=== PATIENT | female | born 2000 | race Caucasian/White ===

== ENCOUNTER 2019-03-12 15:40 | Inpatient (IN) | payer OTHER, SELFPAY ==
[2019-03-12] VITALS (14 sets, daily range): BP systolic 121–144; BP diastolic 74–83; PULSE 105–123; RESP 18–21; TEMP 36.7–37.9; O2SAT 87–93; BMI 35.7
[2019-03-12] MEDS: ALBUTEROL/IPRATROPIUM 3 ML AMPUL INH ×2 (16:01→21:21)
[2019-03-12] MEDS: ALBUTEROL 2.5 MG/3 ML NEB (ADULT) INH (16:07)
[2019-03-12] MEDS: predniSONE 20 MG TABLET 60 MG PO (16:17)
--- NOTE | 2019-03-12 16:25 | DI.RAD.S_ITS ---
PROCEDURE: XR CHEST 2V INDICATIONS: sob, wheezing, cough, hx of asthma and pneumonia TECHNIQUE: 2 views of the chest were acquired. COMPARISON: None. FINDINGS: Surgical changes and devices: None. Lungs and pleura: Lungs are clear. No pleural effusions or pneumothorax. Mediastinum: Mediastinal contours are normal. Heart size is normal. Bones and chest wall: No suspicious bony abnormalities. Soft tissues appear unremarkable. IMPRESSION: Negative chest. No acute cardiopulmonary process is evident. Dictated by: Sp Seay M.D. on 03/12/2019 at 15:39 Approved by: Sp Seay M.D. on 03/12/2019 at 15:46
--- NOTE | 2019-03-12 16:38 | ED.ASTHMA ---
HPI - Asthma <BECKA Wright - Last Filed: 03/12/19 19:04> General Chief Complaint: Asthma Stated Complaint: asthma attack Time Seen by Provider: 03/12/19 15:43 Source: patient Mode of arrival: Wheelchair Limitations: no limitations History of Present Illness HPI Narrative: This is a 18-year-old female, occasional TCH smoker, who presents to ED with family member with worsening short of breath, chest tightness, wheezing, yellow mucus productive cough for last 4 days. Patient reports onset of symptoms 10 days ago. Patient denies fever, chills, nausea or vomiting. She was diagnosed with asthma 1.5 years ago when she had bad bronchitis and pneumonia and was hospitalized for 5 days. She has been using albuterol inhaler every 2 hours or so without much effect. Patient denies history of intubation from asthma exacerbation. Patient reports feels like her symptoms are similar to when she had pneumonia in the past. Patient reports asthma exacerbation is usually by smoking TCH oil which she has not used recently. Last LMP about a week ago, has IUD. No recent long distance travel and denies hx of blood clots. Patient currently visiting family members in [facility] and her PCP is in [facility]. Related Data Home Medications Medication Instructions Recorded Confirmed albuterol sulfate 2 puff INHALATION Q6HR PRN 03/12/19 03/12/19 citalopram 40 mg PO QPM 03/12/19 03/12/19 rizatriptan 10 mg TRANSLINGUAL PRN PRN 03/12/19 03/12/19 Allergies Allergy/AdvReac Type Severity Reaction Status Date / Time No Known Drug Allergies Allergy Verified 03/12/19 15:49 Review of Systems <BECKA Wright - Last Filed: 03/12/19 19:04> Review of Systems Narrative: General: Denies fever, chills, fatigue, malaise, sweats. HEENT: Denies sinus pain, ear pain, sore throat, difficulty swallowing, dizziness. Respiratory: See HPI Cardiovascular: Denies chest pain, palpitations, orthopnea, edema. Gastrointestinal: Denies nausea, vomiting, abdominal pain, diarrhea, constipation, melena. : Denies dysuria, frequency, incontinence, hematuria, urinary retention. Musculoskeletal: Denies weakness, joint pain or bony pain. Skin: Denies rash, skin lesions, or other. Neurologic: Denies weakness, headache, numbness, change in speech, confusion, seizures, incoordination. Psychiatric: No concerning psychosocial issues. 12-point review of systems is negative except for those stated above. Patient History <BECKA Wright - Last Filed: 03/12/19 19:04> Medical History (Updated 03/12/19 @ 20:55 by BECKA Gonzalez) Asthma (Acute) Bronchitis (Acute) Pneumonia (Acute) Surgical History (Updated 03/12/19 @ 21:31 by BECKA Gonzalez) Hx of (Acute) Family History (Updated 03/12/19 @ 20:56 by BECKA Gonzalez) Mother Asthma Father Pollen allergies Social History household members: family Smoking Status: Never smoker Smoking Status: Never smoker Substance Use Type: marijuana Exam <BECKA Wright - Last Filed: 03/12/19 19:04> Narrative Exam Narrative: GEN: Alert, oriented x 3, well appearing and nourished, and in no acute distress. Head: Normal cephalic, atraumatic. No scalp or temporal tenderness, palpable mass or rash. EYES: Pupils are equal, round, and reactive to light and accommodation. Extraocular muscles are intact bilaterally. There is no subconjunctival hemorrhage, exudate and sclera non-icteric. ENT: Bilateral auditory canals and tympanic membranes clear. Hearing grossly intact. Nose without bleeding, purulent discharge or deviation. Facial sinuses nontender to palpate. Mucous membrane moist, no mucosal lesion. Throat without erythema, tonsillar hypertrophy or exudate. Uvula in midline, airway patent. Neck: Trachea in midline. No JVD, non-tender without lymphadenopathy. No masses or thyroid megaly. Supple, non-tender and no meningeal signs. CARDIAC: Normal regular rate and rhythm without murmurs, gallops, or rubs. No chest wall tenderness. No peripheral edema, cyanosis or pallor. Capillary refill is less than 2 seconds. RESPIRATORY: Lungs are wheezing to auscultate throughout with decreased breath sounds in bilateral lower lobes. clear to auscultate bilaterally. Frequent coughing. No rales, or rhonchi. No stridor. Mild respiratory distress with difficulty completing a long full sentence w/o stopping. No increase work of breathing, or accessary muscle used. O2 sat in RA from 90-94%. ABD: Abdomen soft, nontender and non-distended. No guarding or rebound tenderness to palpate. Bowel sounds are normal in all 4 quadrants. There is no palpable masses or organomegaly. EXT: Full painless ROM of all extremities with no loss of sensation, strength, effusion or edema. SKIN: Warm, dry, normal color for patient. No erythema, lesions or rash over visible areas. BACK: Nontender without deformity or crepitance. No flank tenderness. NEUROLOGICAL: Alert and oriented to place, time and person. Sensation and motor function intact bilaterally. No facial droops, dysphasia. PSYCHIATRIC: Good judgement and reason, without hallucinations, abnormal affect or abnormal behaviors during the examination. Patient is not suicidal. Initial Vital Signs Initial Vital Signs: Vital Signs Temperature 99.9 F H 03/12/19 15:53 Pulse Rate 111 H 03/12/19 15:53 Blood Pressure 141/74 H 03/12/19 15:53 <Lynne Knight DO - Last Filed: 03/13/19 08:12> Initial Vital Signs Initial Vital Signs: Vital Signs Temperature 99.9 F H 03/12/19 15:53 Pulse Rate 111 H 03/12/19 15:53 Blood Pressure 141/74 H 03/12/19 15:53 Course <BECKA Wright - Last Filed: 03/12/19 19:04> Orders Ordered: Acetaminophen (Tylenol) 650 mg PO Q6HR PRN PRN Reason: Fever/Mild Pain (1-3) Last Admin: 03/12/19 21:08 Dose: 650 mg Documented by: JOAQUÍNEAPeggy Albuterol (Ventolin) 2.5 mg INH [id number] PRN PRN Reason: Shortness Of Breath Albuterol/Ipratropium (Duoneb) 3 ml INH RTQ4HR PRN PRN Reason: Shortness Of Breath Last Admin: 03/13/19 07:56 Dose: 3 ml Documented by: Admin: 03/13/19 02:39 Dose: 3 ml Documented by: Admin: 03/12/19 21:21 Dose: 3 ml Documented by: STEPHANIE Citalopram Hydrobromide (Celexa) 40 mg PO DAILY HALIE Influenza Virus Vaccine (Flu Vaccine) 0.5 ml IM .ONCE ONE Stop: 03/13/19 09:01 Prednisone (Deltasone) 60 mg PO DAILY HALIE Sumatriptan Succinate (Imitrex) 50 mg PO Q2H PRN PRN Reason: Headache Last Admin: 03/13/19 05:17 Dose: 50 mg Documented by: Admin: 03/12/19 21:07 Dose: 50 mg Documented by: ALBERT Discontinued Medications Albuterol (Ventolin) 2.5 mg INH [id number] PRN PRN Reason: Shortness Of Breath Last Admin: 03/12/19 16:07 Dose: 2.5 mg Documented by: GERI Albuterol (Ventolin) 5 mg INH NOW ONE Stop: 03/12/19 17:04 Last Admin: 03/12/19 17:26 Dose: 5 mg Documented by: GERMÁN Albuterol/Ipratropium (Duoneb) 3 ml INH NOW ONE Stop: 03/12/19 15:57 Last Admin: 03/12/19 16:01 Dose: 3 ml Documented by: GERI Azithromycin (Zithromax) 500 mg PO NOW ONE Stop: 03/12/19 19:52 Last Admin: 03/12/19 20:13 Dose: 500 mg Documented by: ALBERT Sodium Chloride (Normal Saline 0.9%) 1,000 mls @ 1,000 mls/hr IV BOLUS ONE Stop: 03/12/19 18:19 Last Infusion: 03/12/19 18:59 Dose: 0 mls/hr Documented by: Admin: 03/12/19 18:04 Dose: 1,000 mls/hr Documented by: TELLO Magnesium Sulfate (Magnesium Sulfate) 2 gm in 50 mls @ 25 mls/hr IV NOW ONE Stop: 03/12/19 20:32 Last Infusion: 03/12/19 19:24 Dose: 25 mls/hr Documented by: ALBERT Cosigned by: BIANCA Infusion: 03/12/19 18:56 Dose: 0 mls/hr Documented by: TELLO Cosigned by: TAVARES Admin: 03/12/19 18:42 Dose: 25 mls/hr Documented by: TELLO Cosigned by: TAVARES Ondansetron HCl (Zofran) 4 mg IV NOW ONE Stop: 03/12/19 18:23 Last Admin: 03/12/19 18:41 Dose: 4 mg Documented by: TELLO Prednisone (Deltasone) 60 mg PO NOW ONE Stop: 03/12/19 16:00 Last Admin: 03/12/19 16:17 Dose: 60 mg Documented by: TELLO Reevaluation(s) Reevaluation #1: increasing wheezing after 1st neb treatment. additional neb tx ordered. Time: 17:04 Reevaluation #2: continue with exp wheezing, o2 sat 88% in RA Time: 18:24 Reevaluation #3: O2 decreases to 87% and O2 by NC on 2 liter provided Time: 18:40 Consultations Consultation #1: Dr. Doss for admission Time: 18:35 Vital Signs Vital signs: Vital Signs - 8 hr 03/12/19 15:53 03/12/19 16:00 03/12/19 16:03 Temperature 99.9 F H Pulse Rate 111 H 108 H 105 H Respiratory Rate 20 20 Blood Pressure [Left Arm] 141/74 H 143/78 H Pulse Oximetry 90 L 88 L 03/12/19 16:08 03/12/19 17:27 03/12/19 17:32 Temperature Pulse Rate 111 H 122 H 115 H Respiratory Rate 19 18 21 Blood Pressure [Left Arm] 143/82 H Pulse Oximetry 89 L 93 92 <Lynne Knight, - Last Filed: 03/13/19 08:12> Orders Ordered: Acetaminophen (Tylenol) 650 mg PO Q6HR PRN PRN Reason: Fever/Mild Pain (1-3) Last Admin: 03/12/19 21:08 Dose: 650 mg Documented by: JPERANTEAU Albuterol (Ventolin) 2.5 mg INH [id number] PRN PRN Reason: Shortness Of Breath Albuterol/Ipratropium (Duoneb) 3 ml INH RTQ4HR PRN PRN Reason: Shortness Of Breath Last Admin: 03/13/19 07:56 Dose: 3 ml Documented by: Admin: 03/13/19 02:39 Dose: 3 ml Documented by: Admin: 03/12/19 21:21 Dose: 3 ml Documented by: STEPHANIE Citalopram Hydrobromide (Celexa) 40 mg PO DAILY HALIE Influenza Virus Vaccine (Flu Vaccine) 0.5 ml IM .ONCE ONE Stop: 03/13/19 09:01 Prednisone (Deltasone) 60 mg PO DAILY HALIE Sumatriptan Succinate (Imitrex) 50 mg PO Q2H PRN PRN Reason: Headache Last Admin: 03/13/19 05:17 Dose: 50 mg Documented by: Admin: 03/12/19 21:07 Dose: 50 mg Documented by: ALBERT Discontinued Medications Albuterol (Ventolin) 2.5 mg INH [id number] PRN PRN Reason: Shortness Of Breath Last Admin: 03/12/19 16:07 Dose: 2.5 mg Documented by: GERI Albuterol (Ventolin) 5 mg INH NOW ONE Stop: 03/12/19 17:04 Last Admin: 03/12/19 17:26 Dose: 5 mg Documented by: GERMÁN Albuterol/Ipratropium (Duoneb) 3 ml INH NOW ONE Stop: 03/12/19 15:57 Last Admin: 03/12/19 16:01 Dose: 3 ml Documented by: GERI Azithromycin (Zithromax) 500 mg PO NOW ONE Stop: 03/12/19 19:52 Last Admin: 03/12/19 20:13 Dose: 500 mg Documented by: ALBERT Sodium Chloride (Normal Saline 0.9%) 1,000 mls @ 1,000 mls/hr IV BOLUS ONE Stop: 03/12/19 18:19 Last Infusion: 03/12/19 18:59 Dose: 0 mls/hr Documented by: Admin: 03/12/19 18:04 Dose: 1,000 mls/hr Documented by: TELLO Magnesium Sulfate (Magnesium Sulfate) 2 gm in 50 mls @ 25 mls/hr IV NOW ONE Stop: 03/12/19 20:32 Last Infusion: 03/12/19 19:24 Dose: 25 mls/hr Documented by: ALBERT Cosigned by: BIANCA Infusion: 03/12/19 18:56 Dose: 0 mls/hr Documented by: TELLO Cosigned by: CPRUITT Admin: 03/12/19 18:42 Dose: 25 mls/hr Documented by: TELLO Cosigned by: TAVARES Ondansetron HCl (Zofran) 4 mg IV NOW ONE Stop: 03/12/19 18:23 Last Admin: 03/12/19 18:41 Dose: 4 mg Documented by: TELLO Prednisone (Deltasone) 60 mg PO NOW ONE Stop: 03/12/19 16:00 Last Admin: 03/12/19 16:17 Dose: 60 mg Documented by: TELLO Vital Signs Vital signs: Vital Signs - 8 hr 03/12/19 15:53 03/12/19 16:00 03/12/19 16:03 Temperature 99.9 F H Pulse Rate 111 H 108 H 105 H Respiratory Rate 20 20 Blood Pressure [Left Arm] 141/74 H 143/78 H Pulse Oximetry 90 L 88 L 03/12/19 16:08 03/12/19 17:27 03/12/19 17:32 Temperature Pulse Rate 111 H 122 H 115 H Respiratory Rate 19 18 21 Blood Pressure [Left Arm] 143/82 H Pulse Oximetry 89 L 93 92 MDM - Asthma <Korey BECKA Ulloa - Last Filed: 03/12/19 19:04> Differential Diagnosis Differential diagnosis: Likely Acute exacerbation, Status asthmaticus, Acute asthmatic bronchitis, PE and Pneumonia Medical Records Attestation: I reviewed the patient's medical records. Lab Data Attestation: I reviewed the patient's lab results. Result diagrams: 03/13/19 05:10 03/13/19 05:10 Labs: Lab Results 03/12/19 03/12/19 03/12/19 Range/Units 18:05 18:05 18:05 WBC 13.6 H (4.5-11.0) X10^3/uL RBC 4.99 (4.0-5.2) X10^6/uL Hgb 14.6 (12.0-16.0) g/dL Hct 42.7 (36-46) % MCV 85.6 (80-100) fL MCH 29.3 (26-34) PG MCHC 34.3 (30-36) % RDW 13.7 (11.6-14.8) % Plt Count 345 (150-400) X10^3/uL Neut % (Auto) 79.4 H (50-75) % Lymph % (Auto) 12.6 L (25-40) % [place] % (Auto) 4.2 (3-14) % Eos % (Auto) 2.7 (2-4) % Baso % (Auto) 1.1 (0-2) % Neut # (Auto) 67716 H (9575-6726) /uL Lymph # (Auto) 1700 (0506-9541) /uL [place] # (Auto) 600 (0-900) /uL Eos # (Auto) 400 (0-450) /uL Baso # (Auto) 200 H (0-100) /uL Sodium 138 (137-145) mmol/L Potassium 3.5 (3.4-5.1) mmol/L Chloride 105 (98-107) mmol/L Carbon Dioxide 23 (22-32) mmol/L BUN 6 L (7-17) mg/dL Creatinine 0.60 (0.52-1.04) mg/dL Estimated GFR > 60.0 (>60) mL/min BUN/Creatinine Ratio 10.0 (6-22) Glucose 124 H (70-100) mg/dL Calcium 9.6 (8.4-10.2) mg/dL Procalcitonin < 0.05 (<0.5) ng/mL Chlamy pneumoniae PCR (Not Detect) Adenovirus (PCR) (Not Detect) B.parapertussis DNA PCR (Not Detect) Coronavirus OC43 (PCR) (Not Detect) Coronavirus HKU1 (PCR) (Not Detect) Coronavirus 229E (PCR) (Not Detect) Coronavirus NL63 (PCR) (Not Detect) Human Metapneumovir PCR (Not Detect) Influenza Type A (PCR) (Not Detect) Influenza Type B (PCR) (Not Detect) M. pneumoniae (PCR) (Not Detect) Parainfluenza 1 (PCR) (Not Detect) Parainfluenza 2 (PCR) (Not Detect) Parainfluenza 3 (PCR) (Not Detect) Parainfluenza 4 (PCR) (Not Detect) RSV (PCR) (Not Detect) Entero/Rhino (PCR) (Not Detect) 03/12/19 Range/Units 18:31 WBC (4.5-11.0) X10^3/uL RBC (4.0-5.2) X10^6/uL Hgb (12.0-16.0) g/dL Hct (36-46) % MCV (80-100) fL MCH (26-34) PG MCHC (30-36) % RDW (11.6-14.8) % Plt Count (150-400) X10^3/uL Neut % (Auto) (50-75) % Lymph % (Auto) (25-40) % [place] % (Auto) (3-14) % Eos % (Auto) (2-4) % Baso % (Auto) (0-2) % Neut # (Auto) (9927-0846) /uL Lymph # (Auto) (6340-1540) /uL [place] # (Auto) (0-900) /uL Eos # (Auto) (0-450) /uL Baso # (Auto) (0-100) /uL Sodium (137-145) mmol/L Potassium (3.4-5.1) mmol/L Chloride (98-107) mmol/L Carbon Dioxide (22-32) mmol/L BUN (7-17) mg/dL Creatinine (0.52-1.04) mg/dL Estimated GFR (>60) mL/min BUN/Creatinine Ratio (6-22) Glucose (70-100) mg/dL Calcium (8.4-10.2) mg/dL Procalcitonin (<0.5) ng/mL Chlamy pneumoniae PCR Not detected (Not Detect) Adenovirus (PCR) Not detected (Not Detect) B.parapertussis DNA PCR Not detected (Not Detect) Coronavirus OC43 (PCR) Not detected (Not Detect) Coronavirus HKU1 (PCR) Not detected (Not Detect) Coronavirus 229E (PCR) Not detected (Not Detect) Coronavirus NL63 (PCR) Not detected (Not Detect) Human Metapneumovir PCR Not detected (Not Detect) Influenza Type A (PCR) Not detected (Not Detect) Influenza Type B (PCR) Not detected (Not Detect) M. pneumoniae (PCR) Not detected (Not Detect) Parainfluenza 1 (PCR) Not detected (Not Detect) Parainfluenza 2 (PCR) Not detected (Not Detect) Parainfluenza 3 (PCR) Not detected (Not Detect) Parainfluenza 4 (PCR) Not detected (Not Detect) RSV (PCR) Not detected (Not Detect) Entero/Rhino (PCR) Not detected (Not Detect) Imaging Data Chest x-ray: Radiologist's impression: [address] [address] XRay Report Signed Patient: Damaris Hamlin MMR#: [id number] : 2000Acct:[id number] Age/Sex: 18 / FDate of Service: 03/12/19 Loc: ED Accession Number: [id number] Procedure: XR chest 2V Ordering Provider: Korey Ulloa PROCEDURE: XR CHEST 2V INDICATIONS: sob, wheezing, cough, hx of asthma and pneumonia TECHNIQUE: 2 views of the chest were acquired. COMPARISON: None. FINDINGS: Surgical changes and devices: None. Lungs and pleura: Lungs are clear. No pleural effusions or pneumothorax. Mediastinum: Mediastinal contours are normal. Heart size is normal. Bones and chest wall: No suspicious bony abnormalities. Soft tissues appear unremarkable. IMPRESSION: Negative chest. No acute cardiopulmonary process is evident. Dictated by: Sp Seay M.D. on 03/12/2019 at 15:39 Approved by: Sp Seay M.D. on 03/12/2019 at 15:46 MDM Narrative Medical decision making narrative: This is a 18-year-old female who has history of bronchitis, pneumonia, asthma who presents to ED with short of breath, wheezing, chest tightness, dizziness, productive cough for last 4 days. Onset of symptoms about 10 days ago and progressively gotten worse. Patient denies constitutional symptoms. Patient has been using albuterol inhaler frequently like every 1-2 hours but on relieved the symptoms. Patient initially diagnosed with asthma about 1.5 years ago when she was hospitalized with pneumonia for 5 days. Patient initially had very mild wheezing with decreased lung sounds and O2 sat in room air in 90-94%. Patient has frequent nonproductive cough worsens with deep inhalation. Patient has tachycardia rate in 110's bmp. Patient's PCP is at [facility] and patient is visiting family members in town. Patient was treated with DuoNeb and prednisone 60 mg p.o. initially. Noticed increased air movement but worsening wheezing to auscultate. X-ray test was obtained with no acute findings such as pneumonia. Patient given additional 5 mg of albuterol without much improvement. Patient continued to have expiratory wheezing with coughing. Mild increase in white count with neutrophil. Normal electrolytes five mildly increased glucose. Will treat patient as asthma exacerbation with viral bronchitis etiology. O2 sat decreased to 87% in RA with symptoms and given oxygen 2 L of nasal cannula. Dr. Doss was consulted for the admission for asthma exacerbation he kindly accepted patient's care for observation. Additional lab test for respiratory panel was ordered. Patient started on magnesium 2 g infusion for continuing symptoms for with asthma. Differential diagnosis is for she considered the patient doesn't have history of blood clots, is not on estrogen control medications and denies long distance travel and PE test has not obtained at this time. <Lynne Knight, - Last Filed: 03/13/19 08:12> Lab Data Labs: Lab Results 03/12/19 03/12/19 03/12/19 Range/Units 18:05 18:05 18:05 WBC 13.6 H (4.5-11.0) X10^3/uL RBC 4.99 (4.0-5.2) X10^6/uL Hgb 14.6 (12.0-16.0) g/dL Hct 42.7 (36-46) % MCV 85.6 (80-100) fL MCH 29.3 (26-34) PG MCHC 34.3 (30-36) % RDW 13.7 (11.6-14.8) % Plt Count 345 (150-400) X10^3/uL Neut % (Auto) 79.4 H (50-75) % Lymph % (Auto) 12.6 L (25-40) % [place] % (Auto) 4.2 (3-14) % Eos % (Auto) 2.7 (2-4) % Baso % (Auto) 1.1 (0-2) % Neut # (Auto) 16858 H (1539-3241) /uL Lymph # (Auto) 1700 (2328-7380) /uL [place] # (Auto) 600 (0-900) /uL Eos # (Auto) 400 (0-450) /uL Baso # (Auto) 200 H (0-100) /uL Sodium 138 (137-145) mmol/L Potassium 3.5 (3.4-5.1) mmol/L Chloride 105 (98-107) mmol/L Carbon Dioxide 23 (22-32) mmol/L BUN 6 L (7-17) mg/dL Creatinine 0.60 (0.52-1.04) mg/dL Estimated GFR > 60.0 (>60) mL/min BUN/Creatinine Ratio 10.0 (6-22) Glucose 124 H (70-100) mg/dL Calcium 9.6 (8.4-10.2) mg/dL Procalcitonin < 0.05 (<0.5) ng/mL Chlamy pneumoniae PCR (Not Detect) Adenovirus (PCR) (Not Detect) B.parapertussis DNA PCR (Not Detect) Coronavirus OC43 (PCR) (Not Detect) Coronavirus HKU1 (PCR) (Not Detect) Coronavirus 229E (PCR) (Not Detect) Coronavirus NL63 (PCR) (Not Detect) Human Metapneumovir PCR (Not Detect) Influenza Type A (PCR) (Not Detect) Influenza Type B (PCR) (Not Detect) M. pneumoniae (PCR) (Not Detect) Parainfluenza 1 (PCR) (Not Detect) Parainfluenza 2 (PCR) (Not Detect) Parainfluenza 3 (PCR) (Not Detect) Parainfluenza 4 (PCR) (Not Detect) RSV (PCR) (Not Detect) Entero/Rhino (PCR) (Not Detect) 03/12/19 Range/Units 18:31 WBC (4.5-11.0) X10^3/uL RBC (4.0-5.2) X10^6/uL Hgb (12.0-16.0) g/dL Hct (36-46) % MCV (80-100) fL MCH (26-34) PG MCHC (30-36) % RDW (11.6-14.8) % Plt Count (150-400) X10^3/uL Neut % (Auto) (50-75) % Lymph % (Auto) (25-40) % [place] % (Auto) (3-14) % Eos % (Auto) (2-4) % Baso % (Auto) (0-2) % Neut # (Auto) (7261-8272) /uL Lymph # (Auto) (2361-1123) /uL [place] # (Auto) (0-900) /uL Eos # (Auto) (0-450) /uL Baso # (Auto) (0-100) /uL Sodium (137-145) mmol/L Potassium (3.4-5.1) mmol/L Chloride (98-107) mmol/L Carbon Dioxide (22-32) mmol/L BUN (7-17) mg/dL Creatinine (0.52-1.04) mg/dL Estimated GFR (>60) mL/min BUN/Creatinine Ratio (6-22) Glucose (70-100) mg/dL Calcium (8.4-10.2) mg/dL Procalcitonin (<0.5) ng/mL Chlamy pneumoniae PCR Not detected (Not Detect) Adenovirus (PCR) Not detected (Not Detect) B.parapertussis DNA PCR Not detected (Not Detect) Coronavirus OC43 (PCR) Not detected (Not Detect) Coronavirus HKU1 (PCR) Not detected (Not Detect) Coronavirus 229E (PCR) Not detected (Not Detect) Coronavirus NL63 (PCR) Not detected (Not Detect) Human Metapneumovir PCR Not detected (Not Detect) Influenza Type A (PCR) Not detected (Not Detect) Influenza Type B (PCR) Not detected (Not Detect) M. pneumoniae (PCR) Not detected (Not Detect) Parainfluenza 1 (PCR) Not detected (Not Detect) Parainfluenza 2 (PCR) Not detected (Not Detect) Parainfluenza 3 (PCR) Not detected (Not Detect) Parainfluenza 4 (PCR) Not detected (Not Detect) RSV (PCR) Not detected (Not Detect) Entero/Rhino (PCR) Not detected (Not Detect) Discharge Plan Departure Patient Disposition: Admitted as Observation Clinical Impression: Asthma exacerbation Qualifiers: Asthma severity: moderate Asthma persistence: unspecified Qualified Code(s): J45.901 - Unspecified asthma with (acute) exacerbation Discharge Date/Time: 03/12/19 19:12 Admit Date/Time: 03/12/19 18:37 Admit Provider: Eddi Doss
[2019-03-12] MEDS: ALBUTEROL 2.5 MG/3 ML NEB (ADULT) 5 MG INH (17:26)
[2019-03-12] MEDS: SODIUM CHLORIDE 0.9% 1,000 ML 1000 ML IV (18:04)
[2019-03-12 18:10] LABS: Add Manual Diff / Slide Review NO; Basophils Absolute Auto 200 /uL (0-100); Basophils Percent Auto 1.1 % (0-2); Eosinophils Absolute Auto 400 /uL (0-450); Eosinophils Percent Auto 2.7 % (2-4); Hematocrit 42.7 % (36-46); Hemoglobin 14.6 g/dL (12.0-16.0); Lymphocytes Absolute Auto 1700 /uL (1100-4500); Lymphocytes Percent Auto 12.6 % (25-40); Mean Corpuscular HGB Conc 34.3 % (30-36); Mean Corpuscular Hemoglobin 29.3 PG (26-34); Mean Corpuscular Volume 85.6 fL (80-100); Monocytes Absolute Auto 600 /uL (0-900); Monocytes Percent Auto 4.2 % (3-14); Neutrophils Absolute Auto 10800 /uL (1500-7000); Neutrophils Percent Auto 79.4 % (50-75); Platelet Count 345 X10^3/uL (150-400); Red Blood Cell Count 4.99 X10^6/uL (4.0-5.2); Red Cell Distribution Width 13.7 % (11.6-14.8); White Blood Cell Count 13.6 X10^3/uL (4.5-11.0)
[2019-03-12 18:20] LABS: Blood Urea Nitrogen 6 mg/dL (7-17); Calcium 9.6 mg/dL (8.4-10.2); Carbon Dioxide 23 mmol/L (22-32); Chloride 105 mmol/L (98-107); Estimated Glomerular Filt Rate > 60.0 mL/min (>60); Glucose 124 mg/dL (70-100); HEMOLYSIS < 15 (0-50); Potassium 3.5 mmol/L (3.4-5.1); Sodium 138 mmol/L (137-145)
[2019-03-12 18:41] LABS: Procalcitonin < 0.05 ng/mL (<0.5)
[2019-03-12] MEDS: ONDANSETRON 4 MG/2 ML INJ IV (18:41)
[2019-03-12] MEDS: MAGNESIUM SULFATE 2 GM/50 ML PIGGYBACK IV (18:42)
[2019-03-12] MEDS: AZITHROMYCIN 250 MG TABLET 500 MG PO (20:13)
--- NOTE | 2019-03-12 20:54 | P.HP_ITS ---
History of Present Illness History of Present Illness Date Patient Seen: 03/12/19 Time Patient Seen: 19:30 Chief complaint: Asthma exacerbation Narrative: Damaris Hamlin is a pleasant 18 y.o. female who presents with a week and a half history of shortness of breath worsened with exertion which worsened 2 days ago. States she started coughing up white/yellow phlegm, was unable to walk what she regarded to be a normal distance for her without getting very short of breath and wheezing alot. She normally uses an albuterol inhaler, but does not use a maintenance inhaled steroid. She states she became nauseous in the ED, but did not vomit as they had given her an antiemetic. She denies fever, sweats or chills, cough, wheezing at present. Last year, she spent 4 days at a [facility] where she had an asthma exacerbation where she did have nausea and vomiting. She is a student at [employer] in [place] and her regular PCP is in [place]. She lives with a roommate and states she has not had any sick contacts. She is in the middle of final exams. In the ED, she had a low grade fever of 99.9, was given an albuterol nebulizer and a one-time dose of oral prednisone, 60 mgs. Patient History Medical History (Updated 03/12/19 @ 20:55 by BECKA Gonzalez) Asthma (Acute) Bronchitis (Acute) Pneumonia (Acute) Surgical History (Updated 03/12/19 @ 21:31 by BECKA Gonzalez) Hx of (Acute) Family & Social History Family History (Updated 03/12/19 @ 20:56 by BECKA Gonzalez) Mother Asthma Father Pollen allergies Social History: household members family Prior Living Arrangements Apartment/Condo Safety & Behavioral: Feels Safe in Current Yes Environment Been Physically Hurt or No Threatened By a Person Suicidal Ideation Description None Suicide Plan Description No Plan Tobacco & Substance use: Smoking Status Never smoker Substance Use Type marijuana, daily until recently Meds Home Medications and Allergies Home Medications Medication Instructions Recorded Confirmed Type albuterol sulfate 2 puff INHALATION Q6HR PRN 03/12/19 03/12/19 History citalopram 40 mg PO QPM 03/12/19 03/12/19 History rizatriptan 10 mg TRANSLINGUAL PRN PRN 03/12/19 03/12/19 History Allergies Allergy/AdvReac Type Severity Reaction Status Date / Time No Known Drug Allergies Allergy Verified 03/12/19 15:49 Review of Systems Review of Systems Narrative: All systems reviewed and are negative except as noted in the HPI and below. Exam Vital Signs (past 8 hours): - 03/12/19 15:53 03/12/19 16:00 03/12/19 16:03 Temperature 99.9 F H Pulse Rate 111 H 108 H 105 H Respiratory Rate 20 20 Blood Pressure Blood Pressure [Left Arm] 141/74 H 143/78 H Pulse Oximetry 90 L 88 L 03/12/19 16:08 03/12/19 17:27 03/12/19 17:32 Temperature Pulse Rate 111 H 122 H 115 H Respiratory Rate 19 18 21 Blood Pressure Blood Pressure [Left Arm] 143/82 H Pulse Oximetry 89 L 93 92 03/12/19 18:41 03/12/19 19:26 Temperature Pulse Rate 118 H 123 H Respiratory Rate 20 20 Blood Pressure 136/83 Blood Pressure [Left Arm] 144/82 H Pulse Oximetry 92 93 Oxygen Delivery Method Nasal Cannula Oxygen Flow Rate 2 Narrative Exam Narrative: Gen: Alert, oriented, obese 18 y.o. female, mildly anxious HEENT: normocephalic, atraumatic, conjunctiva clear, sclera non-icteric, oral mucosa pink and moist Neck: supple, full ROM Resp: Lungs with coarse breath sounds, non-labored breathing CV: RRR, no murmur or rubs Abd: soft, non-tender, normoactive BTs Skin: no lesions or rashes, dry and intact Neuro: Alert and oriented X 4 w/no focal deficits Extremities: moves all 4 extremities, is ambulatory, negative Mac?s sign Psyche: normal mood and affect. Objective Labs Result Diagrams: 03/12/19 18:05 03/12/19 18:05 Labs: Laboratory Results - last 24 hr 03/12/19 03/12/19 03/12/19 18:05 18:05 18:05 WBC 13.6 H RBC 4.99 Hgb 14.6 Hct 42.7 MCV 85.6 MCH 29.3 MCHC 34.3 RDW 13.7 Plt Count 345 Neut % (Auto) 79.4 H Lymph % (Auto) 12.6 L [place] % (Auto) 4.2 Eos % (Auto) 2.7 Baso % (Auto) 1.1 Neut # (Auto) 87208 H Lymph # (Auto) 1700 [place] # (Auto) 600 Eos # (Auto) 400 Baso # (Auto) 200 H Sodium 138 Potassium 3.5 Chloride 105 Carbon Dioxide 23 BUN 6 L Creatinine 0.60 Estimated GFR > 60.0 BUN/Creatinine Ratio 10.0 Glucose 124 H Calcium 9.6 Procalcitonin < 0.05 Assessment & Plan Assessment & Plan narrative: Damaris Hamlin will be placed in observation for an asthma exacerbation and breen spected viral bronchitis. 1. Asthma exacerbation, present on admission * She will have q 4 hour albuterol and duoneb nebulizers * Continous O2 sat * Respiratory panel sent and pending * She will continue prednisone 60 mg tomorrow * She will need to be prescribed a inhaled corticosteroid for maintenance with closer followup with a local PCP * She is started on oral Azithromycin 500 mg po daily 2. Mild leukocytosis, present on admission * Possibly due to steriod administration, repeat CBC in the am * Pertussis pcr sent and pending * Strep and legionella urine ordered and pending 3. Fever, acute, present on admission * Tylenol 650 mg po q 6 hours prn * Monitor vital q 4 hours * See #2 Patient is placed into observation as her stay is not anticipated to exceed 2 midnights. FEN: IV saline lock, regular diet, chemistries in the am. VTE Prophylaxis: bilateral NAY hose Disposition: likely discharge to home Code status: Full Meds reconciled: Yes, based on current med list Quality VTE Deep Vein Thrombosis/Pulmonary Embolism Present on Admission: No
[2019-03-12] MEDS: SUMAtriptan 25 MG TABLET 50 MG PO (21:07)
[2019-03-12] MEDS: ACETAMINOPHEN 325 MG TABLET 650 MG PO (21:08)
--- NOTE | 2019-03-12 21:30 | PM.HP.1 ---
History of Present Illness History of Present Illness Chief complaint: Asthma exacerbation Narrative: Damaris Hamlin is a pleasant 18 y.o. female who presents with a week and a half history of shortness of breath worsened with exertion which worsened 2 days ago. States she started coughing up white/yellow phlegm, was unable to walk what she regarded to be a normal distance for her without getting very short of breath and wheezing alot. She normally uses an albuterol inhaler, but does not use a maintenance inhaled steroid. She states she bacame nauseous in the ED, but did not vomit as they had given her an antiemetic. She denies fever, sweats or chills, cough, wheezing at present. Last year, she spent 4 days at a [facility] where she had an asthma exacerbation where she did have nausea and vomiting. She is currently a student at [employer] in [place] and does not have a local PCP. In the ED, she had a low grade fever of 99.9, was given an albuterol nebulizer and a one-time dose of oral prednisone, 60 mgs. Patient History Medical History (Updated 03/12/19 @ 20:55 by BECKA Gonzalez) Asthma (Acute) Bronchitis (Acute) Pneumonia (Acute) Surgical History (Updated 03/12/19 @ 21:31 by BECKA Gonzalez) Hx of (Acute) Family & Social History Family History (Updated 03/12/19 @ 20:56 by BECKA Gonzalez) Mother Asthma Father Pollen allergies Social History: household members family Prior Living Arrangements Apartment/Condo Safety & Behavioral: Feels Safe in Current Yes Environment Been Physically Hurt or No Threatened By a Person Suicidal Ideation Description None Suicide Plan Description No Plan Tobacco & Substance use: Smoking Status Never smoker Substance Use Type marijuana Meds Home Medications and Allergies Home Medications Medication Instructions Recorded Confirmed Type albuterol sulfate 2 puff INHALATION Q6HR PRN 03/12/19 03/12/19 History citalopram 40 mg PO QPM 03/12/19 03/12/19 History rizatriptan 10 mg TRANSLINGUAL PRN PRN 03/12/19 03/12/19 History Allergies Allergy/AdvReac Type Severity Reaction Status Date / Time No Known Drug Allergies Allergy Verified 03/12/19 15:49 Review of Systems Review of Systems Narrative: All systems reviewed and are negative except as noted in the HPI and below. Exam Vital Signs (past 8 hours): - 03/12/19 15:53 03/12/19 16:00 03/12/19 16:03 Temperature 99.9 F H Pulse Rate 111 H 108 H 105 H Respiratory Rate 20 20 Blood Pressure Blood Pressure [Left Arm] 141/74 H 143/78 H Pulse Oximetry 90 L 88 L 03/12/19 16:08 03/12/19 17:27 03/12/19 17:32 Temperature Pulse Rate 111 H 122 H 115 H Respiratory Rate 19 18 21 Blood Pressure Blood Pressure [Left Arm] 143/82 H Pulse Oximetry 89 L 93 92 03/12/19 18:41 03/12/19 19:26 03/12/19 21:05 Temperature 100.3 F H Pulse Rate 118 H 123 H Respiratory Rate 20 20 Blood Pressure 136/83 Blood Pressure [Left Arm] 144/82 H Pulse Oximetry 92 93 03/12/19 21:08 03/12/19 21:21 Temperature 100.3 F H Pulse Rate Respiratory Rate Blood Pressure Blood Pressure [Left Arm] Pulse Oximetry 90 L Oxygen Delivery Method Nasal Cannula Oxygen Flow Rate 2 Objective Labs Result Diagrams: 03/12/19 18:05 03/12/19 18:05 Labs: Laboratory Results - last 24 hr 03/12/19 03/12/19 03/12/19 18:05 18:05 18:05 WBC 13.6 H RBC 4.99 Hgb 14.6 Hct 42.7 MCV 85.6 MCH 29.3 MCHC 34.3 RDW 13.7 Plt Count 345 Neut % (Auto) 79.4 H Lymph % (Auto) 12.6 L [place] % (Auto) 4.2 Eos % (Auto) 2.7 Baso % (Auto) 1.1 Neut # (Auto) 35199 H Lymph # (Auto) 17[address] [place] # (Auto) 600 Eos # (Auto) 400 Baso # (Auto) 200 H Sodium 138 Potassium 3.5 Chloride 105 Carbon Dioxide 23 BUN 6 L Creatinine 0.60 Estimated GFR > 60.0 BUN/Creatinine Ratio 10.0 Glucose 124 H Calcium 9.6 Procalcitonin < 0.05 Quality VTE Deep Vein Thrombosis/Pulmonary Embolism Present on Admission: No
[2019-03-12 21:47] LABS: Adenovirus Not Detected (Not Detect); Bordetella pertussis Not Detected (Not Detect); Chlamydophila pneumoniae Not Detected (Not Detect); Coronavirus 229E Not Detected (Not Detect); Coronavirus HKU1 Not Detected (Not Detect); Coronavirus NL 63 Not Detected (Not Detect); Coronavirus OC43 Not Detected (Not Detect); Human Metapneumovirus Not Detected (Not Detect); Human Rhinovirus/Enterovirus Not Detected (Not Detect); Influenza A Not Detected (Not Detect); Influenza B Not Detected (Not Detect); Mycoplasma pneumoniae Not Detected (Not Detect); Parainfluenza Virus 1 Not Detected (Not Detect); Parainfluenza Virus 2 Not Detected (Not Detect); Parainfluenza Virus 3 Not Detected (Not Detect); Parainfluenza Virus 4 Not Detected (Not Detect); Respiratory Syncytial Virus Not Detected (Not Detect)
[2019-03-13] VITALS (10 sets, daily range): BP systolic 109–135; BP diastolic 61–93; PULSE 89–108; RESP 16–20; TEMP 36.5–37.4; O2SAT 89–93
[2019-03-13] MEDS: ALBUTEROL/IPRATROPIUM 3 ML AMPUL INH ×3 (02:39→10:30)
[2019-03-13] MEDS: SUMAtriptan 25 MG TABLET 50 MG PO ×2 (05:17→15:58)
--- NOTE | 2019-03-13 05:20 | PC.NURSE ---
Pt is on 5L NC at 89% mostly. Tachypneic. Wheezing in all lung mirza. SOB/WHITMORE. Duonebs q4h. Tachycardic in the low 100s.
[2019-03-13 05:22] LABS: Add Manual Diff / Slide Review NO; Basophils Absolute Auto 100 /uL (0-100); Basophils Percent Auto 0.6 % (0-2); Eosinophils Absolute Auto 0 /uL (0-450); Eosinophils Percent Auto 0.2 % (2-4); Hematocrit 40.1 % (36-46); Hemoglobin 13.7 g/dL (12.0-16.0); Lymphocytes Absolute Auto 1500 /uL (1100-4500); Lymphocytes Percent Auto 14.6 % (25-40); Mean Corpuscular HGB Conc 34.1 % (30-36); Mean Corpuscular Hemoglobin 29.6 PG (26-34); Mean Corpuscular Volume 86.8 fL (80-100); Monocytes Absolute Auto 900 /uL (0-900); Monocytes Percent Auto 8.1 % (3-14); Neutrophils Absolute Auto 8000 /uL (1500-7000); Neutrophils Percent Auto 76.5 % (50-75); Platelet Count 338 X10^3/uL (150-400); Red Blood Cell Count 4.62 X10^6/uL (4.0-5.2); Red Cell Distribution Width 13.8 % (11.6-14.8); White Blood Cell Count 10.4 X10^3/uL (4.5-11.0)
[2019-03-13 05:41] LABS: BUN Creatinine Ratio 11.7 (6-22); Blood Urea Nitrogen 7 mg/dL (7-17); Calcium 8.9 mg/dL (8.4-10.2); Carbon Dioxide 23 mmol/L (22-32); Chloride 109 mmol/L (98-107); Estimated Glomerular Filt Rate > 60.0 mL/min (>60); Glucose 165 mg/dL (70-100); HEMOLYSIS 16 (0-50); Potassium 4.1 mmol/L (3.4-5.1); Sodium 141 mmol/L (137-145)
[2019-03-13] MEDS: CITALOPRAM 20 MG TABLET 40 MG PO (08:53)
[2019-03-13] MEDS: predniSONE 20 MG TABLET 60 MG PO (08:53)
--- NOTE | 2019-03-13 10:37 | P.PN_ITS ---
Subjective Subjective Date Patient Seen: 03/13/19 Time Patient Seen: 10:37 Interval history: Damaris Hamlin is a 18-year-old female with past medical history of asthma, obesity, and depression who was admitted for an asthma exacerbation. She still complains of significant shortness of breath today, and cannot walk more than a few steps before becoming dyspneic. She denies any chest pain or fever. She continues to have a cough which is minimally productive. I have added a fluticasone inhaler as step-up therapy given her current exacerbation and reports of frequent inhaler use at home. She remains on oral steroids. Exam Vital Signs (past 8 hours): - 03/13/19 02:39 03/13/19 04:15 03/13/19 07:56 Temperature 98.4 F Pulse Rate 105 H 91 H Respiratory Rate 20 16 Blood Pressure 131/74 Pulse Oximetry 91 89 L 93 03/13/19 08:00 Temperature 98.5 F Pulse Rate 108 H Respiratory Rate 18 Blood Pressure 135/93 H Pulse Oximetry 93 Oxygen Delivery Method Nasal Cannula Oxygen Flow Rate 4 Narrative Exam Narrative: GENERAL APPEARANCE: Well developed, well nourished, obese female in no acute distress SKIN: Inspection of the skin reveals no rashes, ulcerations or petechiae. HEENT: The sclerae were anicteric and conjunctivae were pink and moist. Extraocular movements were intact and pupils were equal, round with normal accommodation. External inspection of the ears and nose showed no scars, lesions, or masses. Lips, teeth, and gums showed normal mucosa. The oral mucosa, hard and soft palate, tongue and posterior pharynx were unremarkable. NECK: Supple and symmetric. There was no thyroid enlargement, and no tenderness, or masses were felt. CHEST: Normal AP diameter and normal contour without any kyphoscoliosis. LUNGS: Diffuse mild wheezing, inspiratory and expiratory. No rhonchi or rales bilaterally. CARDIOVASCULAR: There was a mildly tachycardic rate with regular rhythm without any murmurs, gallops, rubs. Peripheral pulses were 2+ and symmetric. ABDOMEN: Soft and nontender with normal bowel sounds. No ascites was noted. MUSCULOSKELETAL: There was no tenderness or effusions noted. Muscle strength and tone were normal. EXTREMITIES: No cyanosis, clubbing or edema. NEUROLOGIC: Alert and oriented x 3. Normal affect. Gait was normal. Strength is +5/5 in the Upper Extremities and Lower Extremities Bilaterally. Sensation to touch was normal. Objective Labs Result Diagrams: 03/13/19 05:10 03/13/19 05:10 Labs: Laboratory Results - last 24 hr 03/12/19 03/12/19 03/12/19 18:05 18:05 18:05 WBC 13.6 H RBC 4.99 Hgb 14.6 Hct 42.7 MCV 85.6 MCH 29.3 MCHC 34.3 RDW 13.7 Plt Count 345 Neut % (Auto) 79.4 H Lymph % (Auto) 12.6 L [place] % (Auto) 4.2 Eos % (Auto) 2.7 Baso % (Auto) 1.1 Neut # (Auto) 36771 H Lymph # (Auto) 1700 [place] # (Auto) 600 Eos # (Auto) 400 Baso # (Auto) 200 H Sodium 138 Potassium 3.5 Chloride 105 Carbon Dioxide 23 BUN 6 L Creatinine 0.60 Estimated GFR > 60.0 BUN/Creatinine Ratio 10.0 Glucose 124 H Calcium 9.6 Procalcitonin < 0.05 Chlamy pneumoniae PCR Adenovirus (PCR) B.parapertussis DNA PCR Coronavirus OC43 (PCR) Coronavirus HKU1 (PCR) Coronavirus 229E (PCR) Coronavirus NL63 (PCR) Human Metapneumovir PCR Influenza Type A (PCR) Influenza Type B (PCR) M. pneumoniae (PCR) Parainfluenza 1 (PCR) Parainfluenza 2 (PCR) Parainfluenza 3 (PCR) Parainfluenza 4 (PCR) RSV (PCR) Entero/Rhino (PCR) 03/12/19 03/13/19 03/13/19 18:31 05:10 05:10 WBC 10.4 RBC 4.62 Hgb 13.7 Hct 40.1 MCV 86.8 MCH 29.6 MCHC 34.1 RDW 13.8 Plt Count 338 Neut % (Auto) 76.5 H Lymph % (Auto) 14.6 L [place] % (Auto) 8.1 Eos % (Auto) 0.2 L Baso % (Auto) 0.6 Neut # (Auto) 8000 H Lymph # (Auto) 1500 [place] # (Auto) 900 Eos # (Auto) 0 Baso # (Auto) 100 Sodium 141 Potassium 4.1 Chloride 109 H Carbon Dioxide 23 BUN 7 Creatinine 0.60 Estimated GFR > 60.0 BUN/Creatinine Ratio 11.7 Glucose 165 H Calcium 8.9 Procalcitonin Chlamy pneumoniae PCR Not detected Adenovirus (PCR) Not detected B.parapertussis DNA PCR Not detected Coronavirus OC43 (PCR) Not detected Coronavirus HKU1 (PCR) Not detected Coronavirus 229E (PCR) Not detected Coronavirus NL63 (PCR) Not detected Human Metapneumovir PCR Not detected Influenza Type A (PCR) Not detected Influenza Type B (PCR) Not detected M. pneumoniae (PCR) Not detected Parainfluenza 1 (PCR) Not detected Parainfluenza 2 (PCR) Not detected Parainfluenza 3 (PCR) Not detected Parainfluenza 4 (PCR) Not detected RSV (PCR) Not detected Entero/Rhino (PCR) Not detected Assessment & Plan Assessment & Plan narrative: Damaris Hamlin is a 18-year-old female with past medical history of asthma, obesity, and depression who was admitted for an asthma exacerbation. 1. Acute hypoxemic respiratory failure, present on admission -patient desaturates to 88% on room air. She has minimal improvement on 4 L currently at 92%. She still has significant wheezes and dyspnea on exertion currently. -see management of asthma as noted below 2. Asthma exacerbation, present on admission -patient was given steroids, nebulizers, and magnesium in the emergency room and remained significantly short of breath -continue respiratory therapy evaluation and treatments -respiratory panel negative -add fluticasone inhaler twice daily as step-up therapy -continue oral prednisone at 40 mg daily -continue as needed albuterol for shortness of breath -continue azithromycin for possible bronchitis 3. Depression, chronic, stable -continue home citalopram Dispo: Changed to inpatient status today, pending medical stability for discharge home likely in the next 1-2 days. Code: Full DVT: Lovenox daily 40 mg Quality VTE Deep Vein Thrombosis/Pulmonary Embolism Present on Admission: No
--- NOTE | 2019-03-13 13:28 | CM.DANOTE ---
Discharge Planning/Care Management DCP: case received, EMR reviewed and met with pt and her father Silviano Hallano: [place]: [phone]. Introduced self and role. Pt lying in bed, smiling, very agreeable to talk. O2 in place. Pt is a 18 year old female who admitted last evening to care of hospitalist team. She lives in [place]/see below but her good friend's mother Sunita Nicole lives in [place]: [phone]. PCP: Zahraa Gomez: [facility]/ [place]. Payer: [employer] P Admission status: OBS to INPT: as of 03/13: per UR RN Christiano. Pt is functionally independent in community at baseline. Pt currently being treated for severe asthma exacerbation. Silviano says he spoke with Dr. Doss today and he understands his daughter may be able to d/c home as early as tomorrow. DCP team will be following prn for any needs that may arise. CM Discharge Assessment Start: 03/13/19 13:26 Freq: Status: Active Protocol: Document 03/13/19 13:26 ITV (Rec: 03/13/19 13:28 ITV [id number]) Discharge Planning Assessment Advance Directives? No History Provided By Patient,Family Member,Medical Record Has Patient been admitted in last 30 No days? Prior Living Arrangements Apartment/Condo Comment pt is a student at [employer]/[place]. She lives with a roommate in [place] Whiteboard Updated in Patient Room with Yes name and ext. # of Disease Control Inspector Review Status In Process
[2019-03-13] MEDS: ACETAMINOPHEN 325 MG TABLET 650 MG PO (15:57)
[2019-03-13] MEDS: ALBUTEROL 2.5 MG/3 ML NEB (ADULT) INH ×3 (16:20→21:25)
[2019-03-13] MEDS: FLUTICASONE 110MCG HFA 120 PUFF INH ×2 (16:23→20:59)
[2019-03-13] MEDS: AZITHROMYCIN 250 MG TABLET PO (20:53)
--- NOTE | 2019-03-13 23:45 | PC.NURSE ---
Addendum entered by Nancy Stewart R.N. 03/13/19 23:49: SCD's were off more than they were worn throughout shift, as patient is active and was frequently up to bathroom, showered, etc. Original Note: Report received, care assumed 1530. A&Ox3. Tachycardic 100-110; otherwise VSS. Denied pain throughout shift, except headache which was resolved with Imitrex and Tylenol. Patient occasionally states that she is short of breath. Visually, does not appear to be in acute distress. Inspiratory and expiratory wheezes noted throughout on auscultation. Weaned by RT throughout shift from 4LNC to 2LNC. Showered independently.
[2019-03-14] VITALS (10 sets, daily range): BP systolic 122–143; BP diastolic 62–91; PULSE 83–105; RESP 14–20; TEMP 36.5–37.3; O2SAT 90–98
[2019-03-14] MEDS: ALBUTEROL 2.5 MG/3 ML NEB (ADULT) INH ×5 (01:16→19:49)
[2019-03-14] MEDS: ACETAMINOPHEN 325 MG TABLET 650 MG PO ×2 (06:18→16:22)
[2019-03-14] MEDS: SUMAtriptan 25 MG TABLET 50 MG PO ×2 (06:18→16:20)
[2019-03-14] MEDS: CITALOPRAM 20 MG TABLET 40 MG PO (08:03)
[2019-03-14] MEDS: predniSONE 20 MG TABLET 40 MG PO (08:03)
[2019-03-14] MEDS: ENOXAPARIN 40 MG/0.4 ML SYRINGE SUBCUT (08:04)
[2019-03-14] MEDS: AZITHROMYCIN 250 MG TABLET PO (08:09)
[2019-03-14] MEDS: FLUTICASONE 110MCG HFA 120 PUFF INH ×2 (09:18→19:38)
[2019-03-14] MEDS: SODIUM CHLORIDE 0.9% FLUSH 10 ML IV ×2 (10:20→20:59)
--- NOTE | 2019-03-14 10:24 | DIET.PN ---
Dietary Progress Note Pt is 18y F here for asthma exacerbation. This RD stopped in to discuss respiratory quotient and foods to soothe lungs and reduce work of exhalation. Pt will try moderating carbohydrate foods with a focus on eating PRO and healthy fats to reduce inflammation. Pt is college student and says she has been eating a lot of instant potatoes and bread lately because they are inexpensive. Pt is appreciative of reccs.
--- NOTE | 2019-03-14 12:41 | PM.PN.1 ---
Subjective Subjective Date Patient Seen: 03/14/19 Time Patient Seen: 08:45 Interval history: Damaris Hamlin is a 18-year-old female with past medical history of asthma, obesity, and depression who was admitted for an asthma exacerbation. She still complains of shortness of breath today, however it is improving today after initiation of a fluticasone inhaler. She remains on antibiotics and steroids at this time. She denies any chest pain or fever. She continues to have a cough which is minimally productive. Exam Vital Signs (past 8 hours): - 03/14/19 04:48 03/14/19 07:58 03/14/19 09:30 Temperature 97.7 F 97.9 F Pulse Rate 89 83 88 Respiratory Rate 20 16 18 Blood Pressure 128/70 125/85 Pulse Oximetry 94 98 94 03/14/19 11:28 Temperature 98.4 F Pulse Rate 90 Respiratory Rate 16 Blood Pressure 143/91 H Pulse Oximetry 95 Oxygen Delivery Method Nasal Cannula Oxygen Flow Rate 1.5 Narrative Exam Narrative: GENERAL APPEARANCE: Well developed, well nourished, obese female in no acute distress SKIN: Inspection of the skin reveals no rashes, ulcerations or petechiae. HEENT: The sclerae were anicteric and conjunctivae were pink and moist. Extraocular movements were intact and pupils were equal, round with normal accommodation. External inspection of the ears and nose showed no scars, lesions, or masses. Lips, teeth, and gums showed normal mucosa. The oral mucosa, hard and soft palate, tongue and posterior pharynx were unremarkable. NECK: Supple and symmetric. There was no thyroid enlargement, and no tenderness, or masses were felt. CHEST: Normal AP diameter and normal contour without any kyphoscoliosis. LUNGS: Diffuse mild wheezing, inspiratory and expiratory, improved from previous exams. No rhonchi or rales bilaterally. CARDIOVASCULAR: There was a mildly tachycardic rate with regular rhythm without any murmurs, gallops, rubs. Peripheral pulses were 2+ and symmetric. ABDOMEN: Soft and nontender with normal bowel sounds. No ascites was noted. MUSCULOSKELETAL: There was no tenderness or effusions noted. Muscle strength and tone were normal. EXTREMITIES: No cyanosis, clubbing or edema. NEUROLOGIC: Alert and oriented x 3. Normal affect. Gait was normal. Strength is +5/5 in the Upper Extremities and Lower Extremities Bilaterally. Sensation to touch was normal. Objective Labs Result Diagrams: 03/13/19 05:10 03/13/19 05:10 Assessment & Plan Assessment & Plan narrative: Damaris Hamlin is a 18-year-old female with past medical history of asthma, obesity, and depression who was admitted for an asthma exacerbation. 1. Acute hypoxemic respiratory failure, present on admission -patient desaturates to 88% on room air. She is improving today and has decreased O2 requirements. She still has wheezing and dyspnea on exertion, however it appears to be improving. -see management of asthma as noted below 2. Asthma exacerbation, present on admission -patient was given steroids, nebulizers, and magnesium in the emergency room and remained significantly short of breath -continue respiratory therapy evaluation and treatments -respiratory panel negative -add fluticasone inhaler twice daily as step-up therapy -continue oral prednisone at 40 mg daily -continue as needed albuterol for shortness of breath -continue azithromycin for possible bronchitis 3. Depression, chronic, stable -continue home citalopram 4. History of migraines, continue triptan prn Dispo: Changed to inpatient status today, pending medical stability for discharge home likely tomorrow. Code: Full DVT: Lovenox daily 40 mg Quality VTE Deep Vein Thrombosis/Pulmonary Embolism Present on Admission: No
[2019-03-15] VITALS (9 sets, daily range): BP systolic 111–136; BP diastolic 56–74; PULSE 81–98; RESP 16–19; TEMP 36.7–37.2; O2SAT 94–98
[2019-03-15] MEDS: ALBUTEROL 2.5 MG/3 ML NEB (ADULT) INH ×2 (02:30→09:20)
[2019-03-15 07:35] LABS: BUN Creatinine Ratio 21.7 (6-22); Blood Urea Nitrogen 13 mg/dL (7-17); Carbon Dioxide 26 mmol/L (22-32); Chloride 105 mmol/L (98-107); Estimated Glomerular Filt Rate > 60.0 mL/min (>60); Glucose 107 mg/dL (70-100); HEMOLYSIS < 15 (0-50); Potassium 3.7 mmol/L (3.4-5.1); Sodium 140 mmol/L (137-145)
[2019-03-15] MEDS: predniSONE 20 MG TABLET 40 MG PO (09:06)
[2019-03-15] MEDS: CITALOPRAM 20 MG TABLET 40 MG PO (09:06)
[2019-03-15] MEDS: SUMAtriptan 25 MG TABLET 50 MG PO (09:06)
[2019-03-15] MEDS: AZITHROMYCIN 250 MG TABLET PO (09:07)
[2019-03-15] MEDS: ACETAMINOPHEN 325 MG TABLET 650 MG PO (09:07)
[2019-03-15] MEDS: SODIUM CHLORIDE 0.9% FLUSH 10 ML IV (09:08)
[2019-03-15] MEDS: ENOXAPARIN 40 MG/0.4 ML SYRINGE SUBCUT (09:08)
[2019-03-15] MEDS: FLUTICASONE 110MCG HFA 120 PUFF INH (09:20)
--- NOTE | 2019-03-15 12:00 | CM.DPC ---
DCP Cont: Discussed patient at team rounds. Patient is still on oxygen, and will see how she does today. She is to be encouraged to get up and ambulate more. She will be going home with a nebulizer. P: DCP to continue to follow closely. Patient could be discharged home today, if her sats improve. Chelle Valladares RN/Seismometer Operator
--- NOTE | 2019-03-15 13:22 | PM.DS.1 ---
History of Present Illness History of Present Illness Date Patient Seen: 03/15/19 Time Patient Seen: 13:22 Chief complaint: Asthma exacerbation Narrative: As per BECKA Gonzalez: Damaris Hamlin is a pleasant 18 y.o. female who presents with a week and a half history of shortness of breath worsened with exertion which worsened 2 days ago. States she started coughing up white/yellow phlegm, was unable to walk what she regarded to be a normal distance for her without getting very short of breath and wheezing alot. She normally uses an albuterol inhaler, but does not use a maintenance inhaled steroid. She states she became nauseous in the ED, but did not vomit as they had given her an antiemetic. She denies fever, sweats or chills, cough, wheezing at present. Last year, she spent 4 days at a [facility] where she had an asthma exacerbation where she did have nausea and vomiting. She is a student at [employer] in [place] and her regular PCP is in [place]. She lives with a roommate and states she has not had any sick contacts. She is in the middle of final exams. In the ED, she had a low grade fever of 99.9, was given an albuterol nebulizer and a one-time dose of oral prednisone, 60 mgs. Discharge Providers Provider Date of admission: 03/12/19 18:37 Discharge Date: 03/15/19 Discharge provider: Eddi Doss DO Summary Hospital Course Discharge Diagnosis: 1. Acute hypoxemic respiratory failure, present on admission, resolved 2. Asthma exacerbation, present on admission, improved 3. Depression, chronic, stable 4. History of migraines Hospital Course: Damaris Hamlin is a 18-year-old female with past medical history of asthma, obesity, and depression who was admitted for an asthma exacerbation. She continued to slowly improve, and on the day of discharge she was no longer requiring supplemental oxygen therapy. 1. Acute hypoxemic respiratory failure, present on admission -patient desaturated to 88% on room air and at times even further. She did ultimately improved after therapies for asthma as noted below. -see management of asthma as noted below 2. Asthma exacerbation, present on admission -patient was given steroids, nebulizers, and magnesium in the emergency room and remained significantly short of breath -appreciate respiratory therapy assistance -respiratory panel negative -fluticasone 110 mg inhaler was added twice daily for step-up therapy given her asthma exacerbation. -continue oral prednisone at 40 mg daily for an additional 2 days as outpatient -continue as needed albuterol for shortness of breath at home, patient was further given a prescription for a nebulizer machine and albuterol nebulizers which she can use as well. -continue azithromycin for 2 additional days as outpatient 3. Depression, chronic, stable -continue home citalopram 4. History of migraines, continue triptan prn Dispo: Discharged home in stable condition Time Spent with Patient Time spent: Greater than 30 minutes Exam Vital Signs (past 8 hours): - 03/15/19 08:00 03/15/19 09:34 03/15/19 10:45 Temperature 98.1 F Pulse Rate 81 90 Respiratory Rate 18 16 Blood Pressure 129/62 Pulse Oximetry 98 94 96 03/15/19 10:50 03/15/19 11:25 Temperature Pulse Rate Respiratory Rate Blood Pressure Pulse Oximetry 94 97 Oxygen Delivery Method Room Air Oxygen Flow Rate 0 Narrative Exam Narrative: GENERAL APPEARANCE: Well developed, well nourished, obese female in no acute distress SKIN: Inspection of the skin reveals no rashes, ulcerations or petechiae. HEENT: The sclerae were anicteric and conjunctivae were pink and moist. Extraocular movements were intact and pupils were equal, round with normal accommodation. External inspection of the ears and nose showed no scars, lesions, or masses. Lips, teeth, and gums showed normal mucosa. The oral mucosa, hard and soft palate, tongue and posterior pharynx were unremarkable. NECK: Supple and symmetric. There was no thyroid enlargement, and no tenderness, or masses were felt. CHEST: Normal AP diameter and normal contour without any kyphoscoliosis. LUNGS: Diffuse mild wheezing, inspiratory and expiratory, improved from previous exams. No rhonchi or rales bilaterally. CARDIOVASCULAR: There was a mildly tachycardic rate with regular rhythm without any murmurs, gallops, rubs. Peripheral pulses were 2+ and symmetric. ABDOMEN: Soft and nontender with normal bowel sounds. No ascites was noted. MUSCULOSKELETAL: There was no tenderness or effusions noted. Muscle strength and tone were normal. EXTREMITIES: No cyanosis, clubbing or edema. NEUROLOGIC: Alert and oriented x 3. Normal affect. Gait was normal. Strength is +5/5 in the Upper Extremities and Lower Extremities Bilaterally. Sensation to touch was normal. Objective Labs Result Diagrams: 03/13/19 05:10 03/15/19 07:15 Labs: Laboratory Results - last 24 hr 03/15/19 07:15 Sodium 140 Potassium 3.7 Chloride 105 Carbon Dioxide 26 BUN 13 Creatinine 0.60 Estimated GFR > 60.0 BUN/Creatinine Ratio 21.7 Glucose 107 H Calcium 9.0 Discharge Plan Discharge Plan Patient Disposition: Home Discharge comment: You were admitted to the hospital for an asthma exacerbation. Your also treated for a possible bronchitis. You improved with oral steroids and antibiotics. You should continue 2 more days of the steroids and antibiotics at home. I have prescribed do a new inhaler which she should take twice a day to control your asthma symptoms. I've also prescribed a nebulizer for you at home, as well as albuterol to use if you feel short of breath and the inhaler that you currently have is not working. Please follow-up with your primary care doctor in the next 1-2 weeks to check on your asthma symptoms and see if a change is needed in your medications. Discharge orders & Medications Prescriptions: New albuterol sulfate 2.5 mg /3 mL (0.083 %) Solution For Nebulization 2.5 mg INH [id number] PRN (Reason: Shortness Of Breath) 30 Days Qty: 90 RF: 0 azithromycin 250 mg tablet 250 mg PO DAILY 2 Days Qty: 2 RF: 0 fluticasone propionate 110 mcg/actuation HFA aerosol inhaler 1 puff inhalation BID 30 Days Qty: 1 RF: 0 prednisone 20 mg Tablet 40 mg PO DAILY 2 Days Qty: 2 RF: 0 (DME) nebulizer and compressor Device See Rx Instructions .ROUTE .MEDSUPPLY Qty: 1 RF: 0 Continued citalopram 40 mg tablet 40 mg PO QPM RF: 0 albuterol sulfate 90 mcg/actuation HFA aerosol inhaler 2 puff INHALATION Q6HR PRN (Reason: Wheezing) RF: 0 rizatriptan 10 mg tablet,disintegrating 10 mg translingual PRN PRN (Reason: Migraine Headache) RF: 0 Discharge Health Status Health Concerns: Asthma Diet/Activity/Treatments Diet: Diet as Tolerated Activity: As tolerated, your oxygen improved when you walked. Continue to stay as active as possible. Visit Report/Discharge Packet Instructions: DI for Asthma -- Adult, How to Use a Nebulizer Discharges patient from system. Discharge Date/Time: 03/15/19 14:25 Quality VTE Deep Vein Thrombosis/Pulmonary Embolism Present on Admission: No
--- NOTE | 2019-03-15 14:12 | PC.NURSE ---
Discharge Able to wean pt off O2 and to RA, sats stable on RA at rest and also with ambulation by RT. D/c instructions provided to pt. Aware to make f/u apt with PCP and to contact them with any additional questions or concerns. Pt states she took all belongings with her. Left in w/c with hospital escort.
[2019-03-15 19:55] LABS: Strep pneumoniae Ag, Urine DETECTED
== END 2019-03-15 14:25 | disposition home or self-care (01) | DRG 189 ==
LOC: ED 15:49 → AC 18:44
PROVIDERS: Nurse Practitioner Adult Health; Nurse Practitioner Family; Admitting Provider Internal Medicine; Emergency Provider Nurse Practitioner Family; Visit Provider Internal Medicine
DX: J96.01 Acute respiratory failure with hypoxia (principal); J45.901 Unspecified asthma with (acute) exacerbation; F12.90 Cannabis use, unspecified, uncomplicated; F32.9 Major depressive disorder, single episode, unspecified
CPT/HCPCS: 36415; 71046; 80048; 84145; 85025; 87070; 87205; 87449; 87633; 94150; 94640; 94762; 96361; 96374; 96375; 99283; 99285; J1650; J2405; J7613